=== PATIENT | male | born 1995 | race Caucasian/White ===

== ENCOUNTER 2017-07-09 15:27 | Emergency (ER) | payer SELFPAY ==
[2017-07-09 18:23] VITALS: BP 124/71
== END 2017-07-09 18:23 | disposition home or self-care (01) ==
LOC: ED 15:27
DX: S60.222A Contusion of left hand, initial encounter (principal); S60.221A Contusion of right hand, initial encounter; S06.9X9A Unspecified intracranial injury with loss of consciousness of unspecified duration, initial encounter; T14.8XXA Other injury of unspecified body region, initial encounter; Y04.8XXA Assault by other bodily force, initial encounter; Y93.89 Activity, other specified; Y99.8 Other external cause status; Y92.89 Other specified places as the place of occurrence of the external cause

== ENCOUNTER 2020-06-22 09:07 | Emergency (ER) | payer SELFPAY ==
[~2020-06-22] VITALS: Ht 170.2 cm; Wt 61.0 kg
[2020-06-22 09:17] VITALS: Ht 170.2 cm; Wt 61.0 kg
[2020-06-22 10:09] VITALS: BP 137/80
== END 2020-06-22 10:09 | disposition home or self-care (01) ==
LOC: ED 09:07
DX: S01.511A Laceration without foreign body of lip, initial encounter (principal); W17.89XA Other fall from one level to another, initial encounter; Y93.89 Activity, other specified; Y92.89 Other specified places as the place of occurrence of the external cause; Y99.8 Other external cause status